=== PATIENT | male | born 1950 | race Caucasian/White ===

== ENCOUNTER → 2017-06-28 | Day surgery (SDC) | payer OTHER ==
[~2017-06-28] VITALS: Ht 182.9 cm; Wt 112.5 kg
[~2017-06-28] MED LIST: 0.9% Sodium Chloride 1,000 ML IV PRN; AMLO5TAB2 PO; ASPI325T32 PO; ATOR80TA PO; GABA-502 PO; LISI40TA PO; METO50TA3 PO; OMEP20CA11 PO; OXYC1TAB24 PO; Sodium Chloride LOK Flush 10 mL Syringe IV PRN; fentaNYL-PF 50 mCg/mL 2 mL Inj IVPUSH PRN
[2017-06-28 07:26] VITALS: BP 146/89; PULSE 76; RESP 14; O2SAT 96
[2017-06-28 08:24] VITALS: BP 133/85; PULSE 73; RESP 14; O2SAT 97
[2017-06-28 08:33] VITALS: BP 139/83; PULSE 85; RESP 14; O2SAT 97
--- NOTE | 2017-06-28 08:35 | ENDO ---
[address] [address] ENDOSCOPY PROCEDURE PATIENT: ELINA ORELLANA : 1950 MR#: [id number] ADMIT: 06/28/2017 JOB ID: [id number] DATE: 06/28/2017 PRIMARY PROVIDER: Bella Reyes M.D. PROCEDURE: Colonoscopy with cold forceps polypectomy. INDICATIONS: A 67-year-old male who reports for colon polyp surveillance. The patient also has a personal history of colon cancer as well. EQUIPMENT: PCF H 190 DL. SEDATION: 1. 5 mg Versed. 2. 100 mcg fentanyl. COMPLICATIONS: None identified. BOWEL PREPARATION: Excellent. PROCEDURAL INFORMATION: After the risks and benefits were explained, written and verbal informed consent was obtained and the patient was brought into the endoscopy suite and placed into the left lateral decubitus position. Sedation was achieved as above. Digital rectal examination accomplished. Mild internal hemorrhoids noted. The scope was introduced into the rectum and advanced to the right hemicolectomy anastomosis. The scope was slowly withdrawn to carefully examine the mucosa for any defects or lesions. Multiple direct views were made through the dentate line for exclusion of pathology. The colon was decompressed. The scope removed from the patient who tolerated the procedure well. FINDINGS: There was a diminutive polyp in the residual distal transverse removed with cold forceps. There was some very subtle early diverticulosis in the left colon. Otherwise normal appearing right hemicolectomy anastomosis and no other pathology throughout. ENDOSCOPIC DIAGNOSIS: Gastroduodenopathy. 1. Diminutive colon polyp. 2. Mild internal hemorrhoids. RECOMMENDATIONS: 1. Await histopathology. 2. Repeat colonoscopy five years' time.
[2017-06-28 08:40] VITALS: BP 141/86; PULSE 71; RESP 14; O2SAT 97
--- NOTE | 2017-07-01 08:01 | PATH ---
SURGICAL PATHOLOGY Attending Physician:Barrett Delacruz CASE STATUS: Signed Out PATIENT NAME: ELINA ORELLANA PID: [id number] : 1950 DATE COLLECTED:06/28/2017 21:59 SPECIMEN: Colon, Polyp CLINICAL HISTORY: 1). COLON POLYP TRANSVERSE FINAL DIAGNOSIS: Transverse Colon Polyp, Biopsy: Colonic mucosa with no diagnostic abnormality, consistent with polypoid redundancy. Additional step sections are examined. ICD10: K63.5 GROSS DESCRIPTION: The specimen is received in one formalin filled container labeled with the patient's name, sublabeled "transverse colon polyp" and consists of a 0.2 x 0.2 x 0.2 CM portion of tissue which is entirely submitted in one cassette. 06/28/2017DC ICD-9 CODES: CPT CODES: 1: 72279 Electronically Signed Out Jad Rock MD, Ph.D. [facility] Pathology [facility] [address], [place] [address] Technical component performed at [facility], [facility] [address], [place], [address]
== END | disposition home or self-care (01) ==
LOC: END 00:13
PROVIDERS: ATTEND Internal Medicine Gastroenterology
DX: Z12.11 Encounter for screening for malignant neoplasm of colon (principal); K63.5 Polyp of colon; Z85.038 Personal history of other malignant neoplasm of large intestine; Z86.010 Personal history of colon polyps; K64.8 Other hemorrhoids; R73.03 Prediabetes; I10 Essential (primary) hypertension; Z85.820 Personal history of malignant melanoma of skin; G89.4 Chronic pain syndrome; Z98.0 Intestinal bypass and anastomosis status
CPT/HCPCS: 45380; 99153; G0500; J2250; J3010; J7030